=== PATIENT | female | born 1970 | race Caucasian/White ===

== ENCOUNTER 2020-01-31 23:16 | Emergency (ER) | payer OTHER, SELFPAY ==
[2020-01-31 23:37] VITALS: BP 191/85; PULSE 103; RESP 20; TEMP 36.6; O2SAT 100
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
--- NOTE | 2020-02-01 00:36 | PC.NURSE ---
Pt reports heavy vaginal bleeding since December.
[2020-02-01 00:37] LABS: Add Manual Diff / Slide Review NO; Basophils Absolute Auto 200 /uL (0-100); Basophils Percent Auto 1.5 % (0-2); Eosinophils Absolute Auto 300 /uL (0-450); Eosinophils Percent Auto 2.7 % (2-4); Hematocrit 27.6 % (36-46); Hemoglobin 8.4 g/dL (12.0-16.0); Lymphocytes Absolute Auto 2200 /uL (1100-4500); Lymphocytes Percent Auto 19.7 % (25-40); Mean Corpuscular HGB Conc 30.3 % (30-36); Mean Corpuscular Hemoglobin 18.3 PG (26-34); Mean Corpuscular Volume 60.4 fL (80-100); Monocytes Absolute Auto 900 /uL (0-900); Monocytes Percent Auto 7.8 % (3-14); Neutrophils Absolute Auto 7600 /uL (1500-7000); Neutrophils Percent Auto 68.3 % (50-75); Platelet Count 355 X10^3/uL (150-400); Red Blood Cell Count 4.58 X10^6/uL (4.0-5.2); Red Cell Distribution Width 18.9 % (11.6-14.8); White Blood Cell Count 11.1 X10^3/uL (4.5-11.0)
[2020-02-01 00:44] LABS: BUN Creatinine Ratio 15.7 (6-22); Blood Urea Nitrogen 13 mg/dL (7-17); Calcium 9.2 mg/dL (8.4-10.2); Carbon Dioxide 25 mmol/L (22-32); Chloride 105 mmol/L (98-107); Estimated Glomerular Filt Rate > 60.0 mL/min (>60); Glucose 128 mg/dL (70-100); HEMOLYSIS < 15 (0-50); Potassium 3.6 mmol/L (3.4-5.1); Sodium 137 mmol/L (137-145)
[2020-02-01 01:13] LABS: Anisocytosis 2+; Hypochromasia 1+; Microcytosis 3+; Ovalocytes 1+
[2020-02-01 01:32] LABS: Pregnancy Test Serum,Qual Negative (Negative)
[2020-02-01 01:58] LABS: Appearance Urine UA CLOUDY; Color Urine UA Red; Protein Urine UA 2+ (Negative)
[2020-02-01 01:59] LABS: Bilirubin Urine UA Negative (NEGATIVE); Glucose Urine UA NEGATIVE (Negative); Ketones Urine UA NEGATIVE (NEGATIVE); Nitrite Urine UA NEGATIVE (Negative); Occult Blood Urine UA 3+ (Negative); Urobilinogen Urine UA 0.2 E.U./dL (0.2)
[2020-02-01 02:09] LABS: Bacteria Urine Few (2-10); Culture Indicated Urine Specimen Cultured; Leukocyte Esterase Urine UA 1+ (NEGATIVE); RBC Urine >100/HPF (0-5/HPF); WBC Urine 10-30/HPF (0-5/HPF)
--- NOTE | 2020-02-01 02:10 | DI.US.S_ITS ---
PROCEDURE: US PELVIC COMPLETE INDICATIONS: ABNORMAL VAGINAL BLEEDING TECHNIQUE: Real-time scanning was performed of the pelvic organs, with image documentation. Additional endovaginal scanning was necessary due to incomplete visualization of the adnexal and endometrial structures by transabdominal scanning. COMPARISON: [facility], CT, ABDOMEN/PELVIS WITH CONTRAST, 07/24/2014, 18:03. FINDINGS: Transabdominal scanning: Limited scanning through the kidneys shows bilateral hydronephrosis. There are may be parapelvic cysts. No pathologic free abdominal or pelvic fluid. Endovaginal scanning: Uterus: Uterus is normal in size at 11.7 x 6.2 x 6.7 cm. The endometrium measures 17.4 mm in combined thickness. Ovaries: Ovaries are not visualized. IMPRESSION: 1. Marked thickening of endometrium measuring 17.4 mm. Differential diagnoses include endometrial carcinoma endometrial hyperplasia. Recommend gynecological followup. Endometrial sampling may be indicated. 2. Bilateral hydronephrosis and/or parapelvic cysts. Further evaluation with CT or radionuclide renogram is suggested. 3. Ovaries are not visualized. No significant discrepancy with the cut off man radiology preliminary report. Dictated by: Leona Hayes M.D. on 02/01/2020 at 8:22 Approved by: Leona Hayes M.D. on 02/01/2020 at 8:26
--- NOTE | 2020-02-01 02:10 | PC.NURSE ---
Pt declined offer of Tylenol, stating, No thank you, it will make me sleep for 16 hours.
[2020-02-01 02:11] LABS: UR Morphine/Opiate cutoff 300 Negative (Negative); Ur Creatinine 50 (Normal); Ur Specific Gravity 1.025 (Normal); Urine Amphetamines Negative (Negative); Urine Barbiturates Negative (Negative); Urine Benzodiazepines Negative (Negative); Urine Cocaine Negative (Negative); Urine MDMA Negative (Negative); Urine Methadone Negative (Negative); Urine Methamphetamines Negative (Negative); Urine Oxycodone Negative (Negative); Urine Phencyclidine Negative (Negative); Urine Tetrahydrocannabinol Negative (Negative); Urine Tricyclic Antidepressant Negative (Negative); Urine pH 5 (Normal)
[2020-02-01 02:16] VITALS: BP 160/70; PULSE 89; RESP 20; O2SAT 97
[2020-02-01 03:01] VITALS: BP 160/77; PULSE 90; RESP 20; O2SAT 97
== END 2020-02-01 03:37 | disposition home or self-care (01) ==
PROVIDERS: Emergency Provider Emergency Medicine; PCP Family Medicine
DX: N93.9 Abnormal uterine and vaginal bleeding, unspecified (principal); D64.9 Anemia, unspecified; I10 Essential (primary) hypertension; D72.829 Elevated white blood cell count, unspecified; N85.00 Endometrial hyperplasia, unspecified; Z80.3 Family history of malignant neoplasm of breast
CPT/HCPCS: 36415; 76830; 76856; 80048; 80305; 81001; 84703; 85025; 87086; 99284

== ENCOUNTER → 2020-02-07 | Outpatient (CLI) | payer OTHER, SELFPAY | PROVIDERS: PCP Family Medicine; Referring Provider Obstetrics & Gynecology; Visit Provider Obstetrics & Gynecology | DX: D62 Acute posthemorrhagic anemia (principal); R06.09 Other forms of dyspnea ==

== ENCOUNTER → 2020-02-13 12:41 | Outpatient (CLI) | payer OTHER, SELFPAY ==
[2020-02-13 13:01] LABS: Add Manual Diff / Slide Review NO; Basophils Absolute Auto 200 /uL (0-100); Basophils Percent Auto 1.7 % (0-2); Eosinophils Absolute Auto 200 /uL (0-450); Eosinophils Percent Auto 1.9 % (2-4); Hematocrit 27.9 % (36-46); Hemoglobin 8.4 g/dL (12.0-16.0); Lymphocytes Absolute Auto 2000 /uL (1100-4500); Lymphocytes Percent Auto 20.6 % (25-40); Mean Corpuscular HGB Conc 30.2 % (30-36); Mean Corpuscular Hemoglobin 19.4 PG (26-34); Mean Corpuscular Volume 64.2 fL (80-100); Monocytes Absolute Auto 600 /uL (0-900); Monocytes Percent Auto 5.9 % (3-14); Neutrophils Absolute Auto 6800 /uL (1500-7000); Neutrophils Percent Auto 69.9 % (50-75); Platelet Count 366 X10^3/uL (150-400); Red Blood Cell Count 4.34 X10^6/uL (4.0-5.2); Red Cell Distribution Width 22.4 % (11.6-14.8); White Blood Cell Count 9.7 X10^3/uL (4.5-11.0)
[2020-02-13 13:30] LABS: Anisocytosis 2+; Microcytosis 2+
[2020-02-13 13:31] LABS: Hypochromasia 2+
[2020-02-13 18:50] VITALS: BP 125/73; PULSE 85; RESP 20; TEMP 36.8
== END ==
PROVIDERS: PCP Family Medicine
DX: D62 Acute posthemorrhagic anemia (principal); R06.09 Other forms of dyspnea
CPT/HCPCS: 36415; 85025

== ENCOUNTER → 2020-02-13 15:30 | Oncology outpatient (ONC) | payer OTHER, SELFPAY ==
[2019-09-25 10:32] VITALS: BP 132/81; PULSE 89; RESP 18; TEMP 36.7; O2SAT 100
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
--- NOTE | 2019-09-27 17:24 | ONC.SCHED ---
Got auth from [facility] for specialty labs, just need to print it off from [facility] site to scan in here.
[2019-09-27 18:50] LABS: Add Manual Diff / Slide Review NO; Basophils Absolute Auto 100 /uL (0-100); Basophils Percent Auto 0.9 % (0-2); Eosinophils Absolute Auto 200 /uL (0-450); Eosinophils Percent Auto 2.3 % (2-4); Hematocrit 31.2 % (36-46); Hemoglobin 9.4 g/dL (12.0-16.0); Lymphocytes Absolute Auto 2100 /uL (1100-4500); Lymphocytes Percent Auto 20.3 % (25-40); Mean Corpuscular HGB Conc 30.2 % (30-36); Mean Corpuscular Hemoglobin 18.7 PG (26-34); Mean Corpuscular Volume 61.9 fL (80-100); Monocytes Absolute Auto 700 /uL (0-900); Monocytes Percent Auto 6.6 % (3-14); Neutrophils Absolute Auto 7100 /uL (1500-7000); Neutrophils Percent Auto 69.9 % (50-75); Platelet Count 340 X10^3/uL (150-400); Red Blood Cell Count 5.04 X10^6/uL (4.0-5.2); Red Cell Distribution Width 17.8 % (11.6-14.8); White Blood Cell Count 10.1 X10^3/uL (4.5-11.0)
[2019-09-27 19:08] LABS: Hypochromasia 1+; Polychromasia 1+
[2019-09-27 19:09] LABS: Microcytosis 2+
[2019-09-27 19:32] LABS: Alanine Aminotransferase 15 IU/L (<35); Albumin 4.6 g/dL (3.5-5.0); Albumin Globulin Ratio 1.5 (1.0-2.8); Alkaline Phosphatase 84 U/L (38-126); Aspartate Aminotransferase 19 IU/L (14-36); BUN Creatinine Ratio 14.4 (6-22); Bilirubin Total 0.4 mg/dL (0.2-1.3); Blood Urea Nitrogen 13 mg/dL (7-17); Calcium 9.5 mg/dL (8.4-10.2); Carbon Dioxide 23 mmol/L (22-32); Chloride 103 mmol/L (98-107); Estimated Glomerular Filt Rate > 60.0 mL/min (>60); Globulin 3.1 g/dL (1.7-4.1); Glucose 88 mg/dL (70-100); HEMOLYSIS < 15 (0-50); Potassium 4.2 mmol/L (3.4-5.1); Sodium 139 mmol/L (137-145); Total Protein 7.7 g/dL (6.3-8.2)
[2019-09-27 20:06] LABS: Ferritin 3.9 ng/mL (6.27-137)
[2019-09-29 13:55] LABS: HEMOLYSIS < 15 (0-50); Iron 12 ug/dL (37-170)
[2019-09-29 14:13] LABS: Percent Iron Saturation 3 % (15-50); Total Iron Binding Capacity 480 ug/dL (265-497); Transferrin 396 mg/dL (206-381)
[2019-10-02 10:45] LABS: Von Willebrand Factor Antigen 145 % (50-217)
[2019-10-16 10:52] VITALS: BP 134/75; PULSE 77; RESP 16; TEMP 36.2; O2SAT 99
--- NOTE | 2019-10-16 10:53 | ONC.PN ---
PN -Subjective Interval history: ID/CC: 48 year old with presumed history of vWD Hematology History: Latrice Alaniz is a 48 year old female. Per patient, she was diagnosed with von Willebrand disease about late . She said she has always had long bleeding time after skin cut. She denies any history of joint bleeding. She has had easy bruises. She has had severe iron deficiency anemia presumably due to heavy menstrual bleeding. She had 4 infusions of Venofer every 2 weeks recently. She did not get the the 5th due to insurance issue. She is allergic to Benadryl and Prednisone. She denies any blood in the stool. No abdominal pain. No nausea or vomiting. She admits the menstrual periods are getting slightly better which she attributed to menopause. She is experiencing hot flashes. She has an appointment on 10/27/2019 for EGD/C-scope by Dr. Osuna Interim Events: Today, upon further questioning, she said that her bleeding problems seemed to be related to her menstrual cycles. In between the menstrual periods, she said she has not noticed any excessive bleeding including the skin cut or any other procedures. She went further to describe that the skin cut bleeding usually would stop in 5 minutes if it happened in between her menstrual periods. But it could last for hours during the menstrual periods. - Patient Self-Reported Symptoms SR ears, nose, mouth, throat issues: Nose bleeds, Bleeding gums SR Cardiovascular issues: Chest pain, discomfort, tightness, Dizzy/lightheaded SR Neuro issues: Lightheaded/dizzy SR Hematologic issues: Slow healing, Bleeding/bruising - Additional ROS All systems PM: reviewed and no additional remarkable complaints except as stated Home Medications and Allergies Home Medications Medication Instructions Recorded Confirmed Type pantoprazole 20 mg tablet,delayed 20 mg PO DAILY 08/28/19 10/16/19 History release Allergies Allergy/AdvReac Type Severity Reaction Status Date / Time BENZACAIN Allergy Severe Uncoded 02/23/18 12:29 COCAINE Allergy Severe Uncoded 02/23/18 12:29 From BENADRYL Allergy Severe Uncoded 02/23/18 12:29 LATEX Allergy Severe Uncoded 02/23/18 12:29 MORPHINE Allergy Severe Uncoded 02/23/18 12:29 NOVOCAINE Allergy Severe Uncoded 02/23/18 12:29 SULFA Allergy Severe Uncoded 02/23/18 12:29 TAPE Allergy Severe Uncoded 02/23/18 12:29 AMOXICILLIN Allergy Intermediate Uncoded 02/23/18 12:29 CODEINE Allergy Intermediate Uncoded 02/23/18 12:29 LIDOCAINE Allergy Intermediate Uncoded 02/23/18 12:29 PLASTIC SPECULUMS Allergy Intermediate Uncoded 02/23/18 12:29 Exam Vital signs: Last Vital Signs Temp 97.2 F L 10/16/19 10:52 Pulse 77 10/16/19 10:52 Resp 16 10/16/19 10:52 BP 134/75 10/16/19 10:52 Pulse Ox 99 10/16/19 10:52 ECOG 1 - Constitutional positive no acute distress, positive obese, positive cooperative - Routine HEENT Exam Head: Present: normocephalic, atraumatic Eye: Present: EOMI, PERRL, normal accommodation. Absent: conjunctival icterus ENT: Present: mucous membranes moist - Routine Neck Exam Present: supple. Absent: lymphadenopathy, thyromegaly - Routine Chest/Breast/Axilla Exam Axillae: Absent: lymphadenopathy - Routine Respiratory Exam Present: Clear to auscultation bilaterally. Absent: wheezes - Routine Cardiovascular Exam Present: RRR, S1, S2. Absent: murmur, gallop, rubs - Routine Extremities Exam Absent: edema - Routine Neurological Exam Present: alert, oriented X3, CN II-XII intact. Absent: sensory deficit, motor deficit - Routine Psychiatric Exam Present: normal affect Results - Labs Laboratory Last Values WBC 10.1 X10^3/uL (4.5-11.0) 09/27/19 17: RBC 5.04 X10^6/uL (4.0-5.2) 09/27/19 17:22 Hgb 9.4 g/dL (12.0-16.0) L 09/27/19 17:22 Hct 31.2 % (36-46) L 09/27/19 17:22 MCV 61.9 fL (80-100) L 09/27/19 17:22 MCH 18.7 PG (26-34) L 09/27/19 17:22 MCHC 30.2 % (30-36) 09/27/19 17:22 RDW 17.8 % (11.6-14.8) H 09/27/19 17:22 Plt Count 340 X10^3/uL (150-400) 09/27/19 17:22 Neut % (Auto) 69.9 % (50-75) 09/27/19 17:22 Lymph % (Auto) 20.3 % (25-40) L 09/27/19 17:22 Addison % (Auto) 6.6 % (3-14) 09/27/19 17:22 Eos % (Auto) 2.3 % (2-4) 09/27/19 17:22 Baso % (Auto) 0.9 % (0-2) 09/27/19 17:22 Neut # (Auto) 7100 /uL (9578-3178) H 09/27/19 17:22 Lymph # (Auto) 2100 /uL (9412-4513) 09/27/19 17:22 Addison # (Auto) 700 /uL (0-900) 09/27/19 17:22 Eos # (Auto) 200 /uL (0-450) 09/27/19 17:22 Baso # (Auto) 100 /uL (0-100) 09/27/19 17:22 RBC Morphology See below 09/27/19 17:22 Polychromasia 1+ H 09/27/19 17:22 Hypochromasia 1+ H 09/27/19 17:22 Microcytosis 2+ H 09/27/19 17:22 von Willebrand Antigen 145 % (50-217) 09/27/19 17:39 Sodium 139 mmol/L (137-145) 09/27/19 17:22 Potassium 4.2 mmol/L (3.4-5.1) 09/27/19 17:22 Chloride 103 mmol/L (98-107) 09/27/19 17:22 Carbon Dioxide 23 mmol/L (22-32) 09/27/19 17:22 BUN 13 mg/dL (7-17) 09/27/19 17:22 Creatinine 0.90 mg/dL (0.52-1.04) 09/27/19 17:22 Estimated GFR > 60.0 mL/min (>60) 09/27/19 17:22 BUN/Creatinine Ratio 14.4 (6-22) 09/27/19 17:22 Glucose 88 mg/dL (70-100) 09/27/19 17:22 Calcium 9.5 mg/dL (8.4-10.2) 09/27/19 17:22 Iron 12 ug/dL (37-170) L 09/27/19 17:22 TIBC 480 ug/dL (265-497) 09/27/19 17:22 % Saturation 3 % (15-50) L 09/27/19 17:22 Transferrin 396 mg/dL (206-381) H 09/27/19 17:22 Ferritin 3.9 ng/mL (6.27-137) L 09/27/19 17:22 Total Bilirubin 0.4 mg/dL (0.2-1.3) 09/27/19 17:22 AST 19 IU/L (14-36) 09/27/19 17:22 ALT 15 IU/L (<35) 09/27/19 17:22 Alkaline Phosphatase 84 U/L (38-126) 09/27/19 17:22 Total Protein 7.7 g/dL (6.3-8.2) 09/27/19 17:22 Albumin 4.6 g/dL (3.5-5.0) 09/27/19 17:22 Globulin 3.1 g/dL (1.7-4.1) 09/27/19 17:22 Albumin/Globulin Ratio 1.5 (1.0-2.8) 09/27/19 17:22 Ref Test (Refrig) 09/27/19 17:38 - Imaging Additional studies: Procedures Injection or infusion of other therapeutic or prophylactic substance (07/24/14) Assessment and Plan (1) Von Willebrand disease Overview: 48 year old female with presumed history of von Willebrand disease and long history of heavy menstrual periods. Assessment: Today, I spent at least 90% of my time discussing with the patient about her history of bleeding problems and about the repeat test of her presumed von Willebrand disease. Patient insisted that in between her menstrual periods, she has not noticed any significant bleeding problems. She said she had tooth extraction in-between her periods, and the bleeding stopped right away. However she has been having significant perfuse menstrual bleeding. In addition during her menstrual periods, she has noticed significant bleeding problems, for example, prolonged bleeding after skin cut. I talked with her that the clinical presentation is not characteristic for von Willebrand's disease. Furthermore, repeat test we obtained during her previous visit showed that the protein level of von Willebrand's factor is normal, and the factor 8 activity is also normal. Given the above, I think she at most might have a type I von Willeband disease when she was young, and that has spontaneously resolved with age. I talked with her that it is not uncommon to see spontaneous resolution of mild type I von Willebrand disease with age. To further confirm, I will obtain blood samples to evaluate vWF:RCo and vWF:CB Plan: 1. vWF:RCo and vWF:CB 2. PT/PTT 3. Will call Dr. Osuna (2) Iron (Fe) deficiency anemia She has already scheduled for colonoscopy and upper endoscopy next week. Given the above discussion, I think she has a low risk for bleeding. I will call Dr. Osuna and informed him about my discovery and my impression. Patient voiced understanding. I will see the patient after her panscope.
[2019-10-16 13:59] LABS: INR 1.1 (0.9-1.3); Prothrombin Time 12.3 SECONDS (10.1-12.7)
[2019-10-16 14:02] LABS: PTT Partial Thromboplastin Tim 29 SECONDS (26.4-36.2)
--- NOTE | 2019-11-02 15:04 | PC.NURSE ---
Pt called in requesting specialty lab results. WOuld like to discuss results with Dr. Haynes. Will place note in Dr. Haynes's box to call pt.
[2020-02-07 09:33] LABS: Hemoglobin 7.1 g/dL (12.0-16.0); Mean Corpuscular HGB Conc 30.1 % (30-36); Mean Corpuscular Hemoglobin 18.2 PG (26-34); Mean Corpuscular Volume 60.6 fL (80-100); Platelet Count 352 X10^3/uL (150-400); Red Blood Cell Count 3.91 X10^6/uL (4.0-5.2); Red Cell Distribution Width 18.8 % (11.6-14.8); White Blood Cell Count 6.9 X10^3/uL (4.5-11.0)
[2020-02-07 09:45] LABS: Hematocrit 23.7 % (36-46)
[2020-02-07] MEDS: ACETAMINOPHEN 325 MG TABLET 650 MG PO (13:47)
[2020-02-07] MEDS: SODIUM CHLORIDE 0.9% 250 ML 21 ML IV (13:52)
[2020-02-07 14:18] VITALS: BP 134/69; PULSE 88; RESP 16; TEMP 36.7
[2020-02-07 15:02] VITALS: BP 126/75; PULSE 91; RESP 18; TEMP 36.8; O2SAT 100
[2020-02-07 17:00] VITALS: BP 136/69; PULSE 90; RESP 18; TEMP 36.8
[2020-02-07 17:09] LABS: Add Manual Diff / Slide Review NO; Basophils Absolute Auto 100 /uL (0-100); Basophils Percent Auto 1.3 % (0-2); Eosinophils Absolute Auto 100 /uL (0-450); Eosinophils Percent Auto 1.6 % (2-4); Hematocrit 23.7 % (36-46); Hemoglobin 7.3 g/dL (12.0-16.0); Lymphocytes Absolute Auto 1800 /uL (1100-4500); Lymphocytes Percent Auto 22.4 % (25-40); Mean Corpuscular HGB Conc 30.7 % (30-36); Mean Corpuscular Hemoglobin 19.4 PG (26-34); Mean Corpuscular Volume 63.3 fL (80-100); Monocytes Absolute Auto 600 /uL (0-900); Monocytes Percent Auto 7.4 % (3-14); Neutrophils Absolute Auto 5400 /uL (1500-7000); Neutrophils Percent Auto 67.3 % (50-75); Platelet Count 320 X10^3/uL (150-400); Red Blood Cell Count 3.74 X10^6/uL (4.0-5.2); Red Cell Distribution Width 20.4 % (11.6-14.8)
[2020-02-07 17:21] LABS: Anisocytosis 2+; Microcytosis 3+
[2020-02-13] VITALS (7 sets, daily range): BP systolic 125–154; BP diastolic 70–84; PULSE 82–899; RESP 16–116; TEMP 36.6–36.9
[2020-02-13] MEDS: ACETAMINOPHEN 325 MG TABLET 650 MG PO (16:02)
[2020-02-13] MEDS: SODIUM CHLORIDE 0.9% 250 ML 21 ML IV (16:02)
--- NOTE | 2020-02-13 20:37 | PC.NURSE ---
Patient arrived on Acute Care from infusion clinic to complete 2 u PRBC infusion. First unit in progress when she arrived. 2 unit hung at 1830 and completed at 2030. Vital signs have been stable and patient has had nom complaints. She is currently waiting for her to come and pick her up to go home.
--- NOTE | 2020-04-24 14:31 | PC.NURSE ---
THIS NURSE RECEIVED FAXED BLOOD TRANSFUSION ORDER AT 1400. CALLED PATIENT PHONE AND SPOKE WITH WHO SAID SHE WAS AT [facility] ER AND GETTING TRANSFUSED THERE DUE TO OUR CLOSED STATUS STILL THIS WED.
== END ==
PROVIDERS: Obstetrics & Gynecology; PCP Family Medicine; Visit Provider Internal Medicine Hematology & Oncology
DX: D64.9 Anemia, unspecified (principal); R06.09 Other forms of dyspnea; D50.9 Iron deficiency anemia, unspecified
CPT/HCPCS: 36415; 36430; 80053; 82728; 83520; 83540; 83550; 85025; 85027; 85240; 85244; 85245; 85335; 85610; 85730; 86850; 86900; 86901; 99204; 99214; P9016

== ENCOUNTER → 2020-04-09 17:54 | Outpatient (CLI) | payer OTHER, SELFPAY ==
[2020-04-09 18:21] LABS: Hematocrit 35.8 % (36-46); Hemoglobin 11.7 g/dL (12.0-16.0); Mean Corpuscular HGB Conc 32.6 % (30-36); Mean Corpuscular Hemoglobin 22.2 PG (26-34); Mean Corpuscular Volume 68.2 fL (80-100); Platelet Count 280 X10^3/uL (150-400); Red Blood Cell Count 5.24 X10^6/uL (4.0-5.2); Red Cell Distribution Width 21.9 % (11.6-14.8); White Blood Cell Count 10.9 X10^3/uL (4.5-11.0)
== END ==
PROVIDERS: PCP Family Medicine; Referring Provider Student in an Organized Health Care Education/Training Program; Visit Provider Student in an Organized Health Care Education/Training Program
DX: D50.9 Iron deficiency anemia, unspecified (principal); D68.0 Von Willebrand disease
CPT/HCPCS: 36415; 85027

== ENCOUNTER → 2020-04-17 08:16 | Outpatient (CLI) | payer OTHER, SELFPAY ==
[2020-04-17 08:37] LABS: Hematocrit 33.9 % (36-46); Mean Corpuscular HGB Conc 32.4 % (30-36); Mean Corpuscular Hemoglobin 22.1 PG (26-34); Mean Corpuscular Volume 68.4 fL (80-100); Platelet Count 294 X10^3/uL (150-400); Red Blood Cell Count 4.96 X10^6/uL (4.0-5.2); Red Cell Distribution Width 20.6 % (11.6-14.8); White Blood Cell Count 9.8 X10^3/uL (4.5-11.0)
== END ==
PROVIDERS: Obstetrics & Gynecology; PCP Family Medicine; Referring Provider Family Medicine; Visit Provider Family Medicine
DX: D50.9 Iron deficiency anemia, unspecified (principal); N92.4 Excessive bleeding in the premenopausal period
CPT/HCPCS: 36415; 85027; 86850; 86900; 86901

== ENCOUNTER → 2020-04-22 11:58 | Outpatient (CLI) | payer OTHER, SELFPAY ==
[2020-04-22 12:28] LABS: Add Manual Diff / Slide Review NO; Basophils Absolute Auto 100 /uL (0-100); Basophils Percent Auto 1.3 % (0-2); Eosinophils Absolute Auto 200 /uL (0-450); Eosinophils Percent Auto 2.5 % (2-4); Hemoglobin 9.6 g/dL (12.0-16.0); Lymphocytes Absolute Auto 2300 /uL (1100-4500); Lymphocytes Percent Auto 24.3 % (25-40); Mean Corpuscular HGB Conc 31.9 % (30-36); Mean Corpuscular Hemoglobin 21.8 PG (26-34); Mean Corpuscular Volume 68.4 fL (80-100); Monocytes Absolute Auto 800 /uL (0-900); Monocytes Percent Auto 8.3 % (3-14); Neutrophils Absolute Auto 6100 /uL (1500-7000); Neutrophils Percent Auto 63.6 % (50-75); Platelet Count 349 X10^3/uL (150-400); Red Blood Cell Count 4.39 X10^6/uL (4.0-5.2); Red Cell Distribution Width 20.5 % (11.6-14.8); White Blood Cell Count 9.5 X10^3/uL (4.5-11.0)
[2020-04-22 12:42] LABS: Anisocytosis 2+; Poikilocytosis 1+
== END ==
PROVIDERS: PCP Family Medicine; Referring Provider Obstetrics & Gynecology; Visit Provider Obstetrics & Gynecology
DX: Z86.2 Personal history of diseases of the blood and blood-forming organs and certain disorders involving the immune mechanism (principal); Z87.42 Personal history of other diseases of the female genital tract
CPT/HCPCS: 36415; 85025

== ENCOUNTER → 2020-04-24 13:14 | Outpatient (CLI) | payer OTHER, SELFPAY ==
[2020-04-24 13:34] LABS: Hematocrit 31.2 % (36-46); Hemoglobin 9.8 g/dL (12.0-16.0)
== END ==
PROVIDERS: PCP Family Medicine; Referring Provider Obstetrics & Gynecology; Visit Provider Obstetrics & Gynecology
DX: D50.9 Iron deficiency anemia, unspecified (principal); N92.4 Excessive bleeding in the premenopausal period
CPT/HCPCS: 36415; 85014; 85018; 86850; 86900; 86901

== ENCOUNTER 2020-04-24 14:10 | Emergency (ER) | payer OTHER, SELFPAY ==
[2020-04-24 14:25] VITALS: BP 157/67; PULSE 96; RESP 24; O2SAT 97
--- NOTE | 2020-04-24 14:45 | PC.NURSE ---
Patient does not answer many questions. States she is on lots of hormones. Pt and report patient is confused. Pt repeatedly states I have green hair. I remind her that I am wearing a scrub cap. Pt seems confused with moments of being lucid. When pt was told she would get other tests done pt does not seem confused any more and reports that she is now awake and knows what is going on. I asked Judy head of ED to come talk with pt regarding plan.
--- NOTE | 2020-04-24 14:55 | DI.RAD.S_ITS ---
PROCEDURE: XR CHEST 1V INDICATIONS: Dyspnea on exertion TECHNIQUE: One view of the chest was acquired. COMPARISON: None. FINDINGS: Surgical changes and devices: None. Lungs and pleura: Lungs are clear. No pleural effusions or pneumothorax. Mediastinum: Mediastinal contours appear normal. Heart size is normal. Bones and chest wall: No suspicious bony lesions. Overlying soft tissues appear unremarkable. IMPRESSION: No acute cardiopulmonary process is evident. Dictated by: Shawn Tejada M.D. on 04/24/2020 at 14:25 Approved by: Shawn Tejada M.D. on 04/24/2020 at 14:26
--- NOTE | 2020-04-24 14:55 | DI.CT.S_ITS ---
PROCEDURE: CT HEAD/BRAIN WO CON INDICATIONS: Confusion TECHNIQUE: Noncontrast 4.5 mm thick angled axial sections acquired from the foramen magnum to the vertex, with coronal and sagittal reformats. For radiation dose reduction, the following was used: automated exposure control, adjustment of mA and/or kV according to patient size. COMPARISON: [facility], MR, MR BRAIN WITH/WITHOUT CONTRAST, 07/08/2019, 10:34. FINDINGS: Image quality: Excellent. CSF spaces: Basal cisterns are patent. No extra-axial fluid collections. Ventricles are normal in size and shape. Brain: No midline shift. No intracranial masses or hemorrhage. Leon-white matter interface is normal. There is a small calcification identified on the anterior aspect of the medial left temporal lobe, correlating with the area of enhancement on the previous MRI. No additional parenchymal abnormalities are appreciated. Skull and face: Calvarium and visualized facial bones are intact, without suspicious lesions. Sinuses: Visualized sinuses and mastoids are clear. IMPRESSION: 1. No acute intracranial hemorrhage. 2. Punctate calcification at the site of the patient's known left temporal lobe lesion. No surrounding parenchymal edema is identified. Dictated by: Shawn Tejada M.D. on 04/24/2020 at 14:20 Approved by: Shawn Tejada M.D. on 04/24/2020 at 14:25
[2020-04-24] MEDS: SODIUM CHLORIDE 0.9% 1,000 ML 1000 ML IV (15:03)
--- NOTE | 2020-04-24 15:12 | PC.NURSE ---
I entered room to take care of patient. I asked her what brings her in today and states Didn't anyone tell you and appears very upset. I Informed him that I was told she has vaginal bleeding and was sent for a blood transfusion. I informed him that as primary nurse I need to do an assessment and ask questions. verbalizes understanding. IV started. Dr. Marlow in to evaluate patient. Informed pt and family that we will not be starting a transfusion at this moment and we needed to do some imaging and lab work. Pt and become very upset and states they are only here for transfusion and want to leave if they will not be getting one. I informed that decision has not yet been made but that we need to evaluate pt and find out why she is confused and having CP. both parties continue to ask questions and are unsure they want to stay.
[2020-04-24 15:17] LABS: INR 1.1 (0.9-1.3); Prothrombin Time 12.9 SECONDS (10.1-12.7)
[2020-04-24 15:20] LABS: PTT Partial Thromboplastin Tim 26 SECONDS (26.4-36.2)
[2020-04-24 15:21] LABS: Alanine Aminotransferase 11 IU/L (<35); Albumin 3.9 g/dL (3.5-5.0); Albumin Globulin Ratio 1.2 (1.0-2.8); Alkaline Phosphatase 63 U/L (38-126); Aspartate Aminotransferase 21 IU/L (14-36); BUN Creatinine Ratio 10.4 (6-22); Bilirubin Total 0.4 mg/dL (0.2-1.3); Blood Urea Nitrogen 11 mg/dL (7-17); Calcium 8.6 mg/dL (8.4-10.2); Carbon Dioxide 20 mmol/L (22-32); Chloride 111 mmol/L (98-107); Estimated Glomerular Filt Rate 55.1 mL/min (>60); Globulin 3.3 g/dL (1.7-4.1); Glucose 103 mg/dL (70-100); HEMOLYSIS 25 (0-50); Lipase 91 U/L (23-300); Potassium 3.8 mmol/L (3.4-5.1); Sodium 139 mmol/L (137-145); Total Protein 7.2 g/dL (6.3-8.2)
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
[2020-04-24 15:33] LABS: NT-proBNP (BNP-Adult 18+) 35 pg/mL (<125); Troponin I < 0.012 ng/mL (0.01-0.034)
[2020-04-24 17:15] LABS: Add Manual Diff / Slide Review NO; Basophils Absolute Auto 100 /uL (0-100); Basophils Percent Auto 0.9 % (0-2); Eosinophils Absolute Auto 200 /uL (0-450); Eosinophils Percent Auto 1.9 % (2-4); Hematocrit 28.8 % (36-46); Hemoglobin 9.1 g/dL (12.0-16.0); Lymphocytes Absolute Auto 1600 /uL (1100-4500); Lymphocytes Percent Auto 14.3 % (25-40); Mean Corpuscular HGB Conc 31.5 % (30-36); Mean Corpuscular Hemoglobin 21.7 PG (26-34); Mean Corpuscular Volume 68.8 fL (80-100); Monocytes Absolute Auto 700 /uL (0-900); Monocytes Percent Auto 5.9 % (3-14); Neutrophils Absolute Auto 8600 /uL (1500-7000); Platelet Count 343 X10^3/uL (150-400); Red Blood Cell Count 4.19 X10^6/uL (4.0-5.2); White Blood Cell Count 11.1 X10^3/uL (4.5-11.0)
--- NOTE | 2020-04-24 17:15 | PC.NURSE ---
i was asked to speak with patient regarding plan of care and some confusion. Discussed plan of care and patient's concerns, discussed patient has the ability refuse care or any portion of care at anytime. Patient and voiced understanding. Pt refused EKG when RT came to perform it./
[2020-04-24 18:16] LABS: Anisocytosis 1+; Microcytosis 1+; Poikilocytosis 1+
[2020-04-24 18:17] LABS: Ovalocytes 1+
== END 2020-04-24 18:15 | disposition home or self-care (01) ==
PROVIDERS: Emergency Provider Emergency Medicine; PCP Family Medicine
DX: R00.0 Tachycardia, unspecified (principal); R41.0 Disorientation, unspecified; R07.9 Chest pain, unspecified; R55 Syncope and collapse; R06.02 Shortness of breath; D64.9 Anemia, unspecified; D50.9 Iron deficiency anemia, unspecified; N92.4 Excessive bleeding in the premenopausal period
CPT/HCPCS: 36415; 70450; 71045; 80053; 83690; 83880; 84484; 85014; 85018; 85025; 85610; 85730; 86850; 86900; 86901; 96360; 96361; 99284

== ENCOUNTER → 2020-04-26 13:53 | Outpatient (CLI) | payer OTHER, SELFPAY ==
--- NOTE | 2020-04-26 | DI.US.S_ITS ---
PROCEDURE: US PELVIC COMPLETE INDICATIONS: MENORRHAGIA TECHNIQUE: Real-time scanning was performed of the pelvic organs, with image documentation. Additional endovaginal scanning was necessary due to incomplete visualization of the adnexal and endometrial structures by transabdominal scanning. COMPARISON: [facility], , US PELVIC COMPLETE, 02/01/2020, 2:34. FINDINGS: Transabdominal scanning: Limited scanning through the kidneys shows mild left hydronephrosis versus multiple parapelvic cysts.. No pathologic free abdominal or pelvic fluid. Endovaginal scanning: Uterus: Uterus is normal in size at 10.4 x 7.2 x 5.6 cm. The endometrium measures 23 mm in combined thickness. Endometrial microcystic changes. Ovaries: Right are not visualized. Simple cyst associated with the right ovary measuring up to 1.7 cm. No free fluid. IMPRESSION: 1. Abnormal appearance of the endometrial complex which is thickened and has microcystic changes. Endometrial carcinoma cannot be excluded and endometrial biopsy is recommended. 2. 17 mm simple left ovarian cyst 3. Persistent mild left renal hydronephrosis versus multiple parapelvic cysts. If indicated, further evaluation with CT or radionuclide renogram could be performed. Dictated by: Manjinder Garcia [facility] Interpreted: Lianet Alicea MD on 04/26/2020 at 15:07 Approved by: Lianet Alicea MD, PhD on 04/26/2020 at 15:12
== END ==
PROVIDERS: PCP Family Medicine; Referring Provider Obstetrics & Gynecology Gynecologic Oncology; Visit Provider Obstetrics & Gynecology Gynecologic Oncology
DX: N92.1 Excessive and frequent menstruation with irregular cycle (principal); N83.291 Other ovarian cyst, right side
CPT/HCPCS: 76830; 76856

== ENCOUNTER → 2020-07-16 14:40 | Outpatient (CLI) | payer OTHER, SELFPAY ==
[2020-07-16 14:55] LABS: Bacteria Urine None Seen; RBC Urine None Seen (0-5/HPF); WBC Urine None Seen (0-5/HPF)
[2020-07-16 15:55] LABS: Appearance Urine UA CLEAR; Bilirubin Urine UA NEGATIVE (NEGATIVE); Color Urine UA YELLOW; Glucose Urine UA NEGATIVE (Negative); Ketones Urine UA NEGATIVE (NEGATIVE); Leukocyte Esterase Urine UA TRACE (NEGATIVE); Nitrite Urine UA NEGATIVE (Negative); Occult Blood Urine UA NEGATIVE (Negative); Protein Urine UA NEGATIVE (Negative); Specific Gravity Urine UA <=1.005 (1.000-1.035); Urobilinogen Urine UA 0.2 E.U./dL (0.2)
[2020-07-16 15:57] LABS: Culture Indicated Urine Cult Not Indicated; Urine Comments Microscopic Normal
== END ==
PROVIDERS: PCP Family Medicine; Referring Provider Obstetrics & Gynecology Gynecologic Oncology; Visit Provider Obstetrics & Gynecology Gynecologic Oncology
DX: N23 Unspecified renal colic (principal); Z87.440 Personal history of urinary (tract) infections
CPT/HCPCS: 81001

== ENCOUNTER → 2020-07-25 09:45 | Outpatient (CLI) | payer OTHER, SELFPAY ==
[2020-07-25 10:28] LABS: Add Manual Diff / Slide Review NO; Basophils Absolute Auto 100 /uL (0-100); Basophils Percent Auto 1.4 % (0-2); Eosinophils Absolute Auto 200 /uL (0-450); Eosinophils Percent Auto 3.6 % (2-4); Hematocrit 37.3 % (36-46); Hemoglobin 11.5 g/dL (12.0-16.0); Lymphocytes Absolute Auto 1600 /uL (1100-4500); Lymphocytes Percent Auto 24.3 % (25-40); Mean Corpuscular HGB Conc 30.9 % (30-36); Mean Corpuscular Hemoglobin 20.7 PG (26-34); Mean Corpuscular Volume 66.8 fL (80-100); Monocytes Absolute Auto 500 /uL (0-900); Monocytes Percent Auto 7.5 % (3-14); Neutrophils Absolute Auto 4200 /uL (1500-7000); Neutrophils Percent Auto 63.2 % (50-75); Platelet Count 296 X10^3/uL (150-400); Red Blood Cell Count 5.58 X10^6/uL (4.0-5.2); Red Cell Distribution Width 22.4 % (11.6-14.8); White Blood Cell Count 6.7 X10^3/uL (4.5-11.0)
[2020-07-25 10:29] LABS: Hemoglobin A1C% w Est Avg Glu 5.7 % (4.0-6.0)
[2020-07-25 10:35] LABS: Alanine Aminotransferase 39 IU/L (<35); Albumin 4.3 g/dL (3.5-5.0); Albumin Globulin Ratio 1.3 (1.0-2.8); Alkaline Phosphatase 94 U/L (38-126); Aspartate Aminotransferase 35 IU/L (14-36); BUN Creatinine Ratio 14.1 (6-22); Bilirubin Total 0.4 mg/dL (0.2-1.3); Blood Urea Nitrogen 12 mg/dL (7-17); Calcium 9.7 mg/dL (8.4-10.2); Carbon Dioxide 26 mmol/L (22-32); Chloride 104 mmol/L (98-107); Cholesterol 249 mg/dL (140-199); Estimated Glomerular Filt Rate > 60.0 mL/min (>60); Globulin 3.4 g/dL (1.7-4.1); Glucose 112 mg/dL (70-100); HDL Cholesterol 37 mg/dL (40-60); HEMOLYSIS < 15 (0-50); LDL Cholesterol Calculated 164 mg/dL (<100); Potassium 4.4 mmol/L (3.4-5.1); Sodium 138 mmol/L (137-145); Total Protein 7.7 g/dL (6.3-8.2); Triglycerides 242 mg/dL (35-150)
[2020-07-25 10:46] LABS: Anisocytosis 2+; Microcytosis 2+; Ovalocytes 1+
[2020-07-25 10:47] LABS: Hypochromasia 1+
[2020-07-25 11:01] LABS: TSH w/ Reflex to FT4 1.39 uIU/mL (0.47-4.68)
== END ==
PROVIDERS: PCP Family Medicine; Referring Provider Family Medicine; Visit Provider Family Medicine
DX: D64.9 Anemia, unspecified (principal); E78.5 Hyperlipidemia, unspecified; R73.02 Impaired glucose tolerance (oral); E88.81 Metabolic syndrome and other insulin resistance
CPT/HCPCS: 36415; 80053; 80061; 83036; 84443; 85025

== ENCOUNTER → 2020-10-04 07:52 | Outpatient (CLI) | payer OTHER, SELFPAY ==
[2020-10-04 09:29] LABS: Add Manual Diff / Slide Review NO; Basophils Absolute Auto 100 /uL (0-100); Eosinophils Absolute Auto 200 /uL (0-450); Eosinophils Percent Auto 2.5 % (2-4); Hematocrit 44.5 % (36-46); Hemoglobin 14.5 g/dL (12.0-16.0); Lymphocytes Absolute Auto 1700 /uL (1100-4500); Mean Corpuscular HGB Conc 32.5 % (30-36); Mean Corpuscular Hemoglobin 25.3 PG (26-34); Mean Corpuscular Volume 77.9 fL (80-100); Monocytes Absolute Auto 500 /uL (0-900); Monocytes Percent Auto 7.1 % (3-14); Neutrophils Absolute Auto 4900 /uL (1500-7000); Neutrophils Percent Auto 66.4 % (50-75); Platelet Count 255 X10^3/uL (150-400); Red Blood Cell Count 5.72 X10^6/uL (4.0-5.2); Red Cell Distribution Width 21.9 % (11.6-14.8); White Blood Cell Count 7.4 X10^3/uL (4.5-11.0)
[2020-10-04 09:57] LABS: HEMOLYSIS < 15 (0-50); Iron 60 ug/dL (37-170)
[2020-10-04 10:03] LABS: Microcytosis 1+
[2020-10-04 10:04] LABS: Anisocytosis 2+
[2020-10-04 10:05] LABS: Ovalocytes 1+
[2020-10-04 10:08] LABS: Percent Iron Saturation 20 % (15-50); Total Iron Binding Capacity 298 ug/dL (265-497); Transferrin 235 mg/dL (206-381)
[2020-10-04 10:29] LABS: Ferritin 122 ng/mL (6-137)
== END ==
PROVIDERS: PCP Family Medicine; Referring Provider Family Medicine; Visit Provider Family Medicine
DX: D64.9 Anemia, unspecified (principal)
CPT/HCPCS: 36415; 82728; 83540; 83550; 85025

== ENCOUNTER → 2021-01-27 12:39 | Outpatient (CLI) | payer OTHER, SELFPAY ==
[2021-01-27] MEDS: COVID-19 VACC, Ad26(JANSSEN)/PF 0.5 ML IM (12:51)
== END ==
PROVIDERS: PCP Family Medicine; Visit Provider Internal Medicine
DX: Z23 Encounter for immunization (principal)
CPT/HCPCS: 0031A; 91303

== ENCOUNTER → 2021-07-18 14:52 | Outpatient (CLI) | payer OTHER, SELFPAY ==
[2021-07-18 15:43] LABS: Add Manual Diff / Slide Review NO; Basophils Absolute Auto 100 /uL (0-100); Basophils Percent Auto 1.2 % (0-2); Eosinophils Absolute Auto 200 /uL (0-450); Eosinophils Percent Auto 2.2 % (2-4); Hematocrit 43.8 % (36-46); Hemoglobin 14.8 g/dL (12.0-16.0); Lymphocytes Absolute Auto 2100 /uL (1100-4500); Lymphocytes Percent Auto 27.4 % (25-40); Mean Corpuscular HGB Conc 33.8 % (30-36); Mean Corpuscular Hemoglobin 28.9 PG (26-34); Mean Corpuscular Volume 85.4 fL (80-100); Monocytes Absolute Auto 500 /uL (0-900); Monocytes Percent Auto 6.5 % (3-14); Neutrophils Absolute Auto 4800 /uL (1500-7000); Neutrophils Percent Auto 62.7 % (50-75); Platelet Count 232 X10^3/uL (150-400); Red Blood Cell Count 5.12 X10^6/uL (4.0-5.2); Red Cell Distribution Width 13.2 % (11.6-14.8); White Blood Cell Count 7.7 X10^3/uL (4.5-11.0)
[2021-07-18 15:57] LABS: Alanine Aminotransferase 47 IU/L (<35); Albumin 4.6 g/dL (3.5-5.0); Albumin Globulin Ratio 1.4 (1.0-2.8); Alkaline Phosphatase 89 U/L (38-126); Aspartate Aminotransferase 39 IU/L (14-36); BUN Creatinine Ratio 16.5 (6-22); Bilirubin Total 0.8 mg/dL (0.2-1.3); Blood Urea Nitrogen 14 mg/dL (7-17); Calcium 9.6 mg/dL (8.4-10.2); Carbon Dioxide 26 mmol/L (22-32); Chloride 106 mmol/L (98-107); Estimated Glomerular Filt Rate > 60.0 mL/min (>60); Globulin 3.4 g/dL (1.7-4.1); Glucose 97 mg/dL (70-100); HEMOLYSIS < 15 (0-50); Potassium 4.1 mmol/L (3.4-5.1); Sodium 138 mmol/L (137-145)
[2021-07-18 15:58] LABS: Iron 114 ug/dL (37-170)
[2021-07-18 16:07] LABS: Percent Iron Saturation 37 % (15-50); Total Iron Binding Capacity 311 ug/dL (265-497)
[2021-07-18 16:32] LABS: Ferritin 126 ng/mL (11-264)
[2021-07-18 16:46] LABS: Vitamin B12 310 pg/mL (239-931)
== END ==
PROVIDERS: PCP Family Medicine; Referring Provider Family Medicine; Visit Provider Family Medicine
DX: D64.9 Anemia, unspecified (principal)
CPT/HCPCS: 36415; 80053; 82607; 82728; 83540; 83550; 85025

== ENCOUNTER → 2021-11-17 16:45 | Outpatient (CLI) | payer OTHER, SELFPAY ==
[2021-11-19 08:49] LABS: QuantiFERON Mitogen Value >10.00 IU/mL (.); QuantiFERON TB Gold Plus Negative (Negative)
== END ==
PROVIDERS: PCP Family Medicine; Referring Provider Family Medicine; Visit Provider Family Medicine
DX: Z00.00 Encounter for general adult medical examination without abnormal findings (principal)
CPT/HCPCS: 36415; 86480

== ENCOUNTER → 2022-07-02 09:45 | Outpatient (CLI) | payer OTHER, SELFPAY ==
[2022-07-02 11:21] LABS: Add Manual Diff / Slide Review NO; Basophils Absolute Auto 100 /uL (0-100); Eosinophils Absolute Auto 200 /uL (0-450); Eosinophils Percent Auto 2.4 % (2-4); Hematocrit 44.5 % (36-46); Hemoglobin 15.4 g/dL (12.0-16.0); Lymphocytes Absolute Auto 1700 /uL (1100-4500); Lymphocytes Percent Auto 21.5 % (25-40); Mean Corpuscular HGB Conc 34.7 % (30-36); Mean Corpuscular Volume 83.6 fL (80-100); Monocytes Absolute Auto 500 /uL (0-900); Monocytes Percent Auto 6.4 % (3-14); Neutrophils Absolute Auto 5400 /uL (1500-7000); Neutrophils Percent Auto 68.7 % (50-75); Platelet Count 222 X10^3/uL (150-400); Red Blood Cell Count 5.32 X10^6/uL (4.0-5.2); Red Cell Distribution Width 13.8 % (11.6-14.8); White Blood Cell Count 7.8 X10^3/uL (4.5-11.0)
[2022-07-02 11:44] LABS: HEMOLYSIS < 15 (0-50); Iron 76 ug/dL (37-170)
[2022-07-02 11:54] LABS: Alanine Aminotransferase 28 IU/L (<35); Albumin 4.3 g/dL (3.5-5.0); Albumin Globulin Ratio 1.4 (1.0-2.8); Alkaline Phosphatase 104 U/L (38-126); Aspartate Aminotransferase 21 IU/L (14-36); BUN Creatinine Ratio 13.4 (6-22); Bilirubin Total 0.5 mg/dL (0.2-1.3); Blood Urea Nitrogen 11 mg/dL (7-17); Calcium 9.3 mg/dL (8.4-10.2); Carbon Dioxide 22 mmol/L (22-32); Chloride 104 mmol/L (98-107); Cholesterol 292 mg/dL (140-199); Estimated Glomerular Filt Rate > 60 mL/min (>60); Glucose 110 mg/dL (70-100); HDL Cholesterol 37 mg/dL (40-60); HEMOLYSIS < 15 (0-50); LDL Cholesterol Calculated 206 mg/dL (<100); Potassium 4.4 mmol/L (3.4-5.1); Sodium 137 mmol/L (137-145); Total Protein 7.3 g/dL (6.3-8.2); Triglycerides 243 mg/dL (35-150)
[2022-07-02 11:55] LABS: Percent Iron Saturation 23 % (15-50); Total Iron Binding Capacity 329 ug/dL (265-497); Transferrin 260 mg/dL (206-381)
[2022-07-02 12:15] LABS: Appearance Urine UA CLEAR; Bilirubin Urine UA NEGATIVE (NEGATIVE); Color Urine UA YELLOW; Glucose Urine UA NEGATIVE (Negative); Ketones Urine UA NEGATIVE (NEGATIVE); Leukocyte Esterase Urine UA NEGATIVE (NEGATIVE); Nitrite Urine UA NEGATIVE (Negative); Occult Blood Urine UA NEGATIVE (Negative); Protein Urine UA NEGATIVE (Negative); Urobilinogen Urine UA 0.2 E.U./dL (0.2)
[2022-07-02 12:18] LABS: TSH w/ Reflex to FT4 1.47 uIU/mL (0.47-4.68)
[2022-07-02 12:44] LABS: Bacteria Urine Moderate (10-30); Culture Indicated Urine Cult Not Indicated; RBC Urine None Seen (0-5/HPF); Squamous Epithelial Cell Urine 5-10 /HPF (0-5/HPF); WBC Urine 1-5/HPF (0-5/HPF)
== END ==
PROVIDERS: PCP Pediatrics; Referring Provider Pediatrics; Visit Provider Pediatrics
DX: D50.9 Iron deficiency anemia, unspecified (principal); D68.0 Von Willebrand disease; E66.9 Obesity, unspecified; K21.9 Gastro-esophageal reflux disease without esophagitis
CPT/HCPCS: 36415; 80053; 80061; 81001; 83540; 83550; 84443; 85025

== ENCOUNTER → 2022-08-17 14:37 | Outpatient (CLI) | payer OTHER, SELFPAY ==
--- NOTE | 2022-08-17 14:41 | DI.RAD.S_ITS ---
PROCEDURE: XR ANKLE RT MIN 3V INDICATIONS: Right ankle injury TECHNIQUE: 3 views of the ankle were acquired. COMPARISON: None. FINDINGS: Bones: No fractures or dislocations. Ankle mortise is normally aligned. No suspicious bony lesions. Mild tibiotalar and talonavicular joint degeneration Calcaneal spurring. Soft tissues: Small tibiotalar joint effusion. Achilles tendon appears normal. Soft tissue swelling over ankle. IMPRESSION: 1. No acute osseous abnormalities. There is soft tissue swelling over the ankle and small tibiotalar joint effusion. If clinical symptoms persist or clinical suspicion for pathology is high, a repeat examination in 7-10 days, or advanced imaging such as CT or MRI is suggested for further evaluation. 2. Mild degenerative joint disease. 3. Calcaneal spurring. Dictated by: Leona Hayes M.D. on 08/17/2022 at 17:52 Approved by: Leona Hayes M.D. on 08/17/2022 at 17:54
== END ==
PROVIDERS: PCP Family Medicine; Referring Provider Student in an Organized Health Care Education/Training Program; Visit Provider Student in an Organized Health Care Education/Training Program
DX: S99.911A Unspecified injury of right ankle, initial encounter (principal); M19.071 Primary osteoarthritis, right ankle and foot; M35.7 Hypermobility syndrome; M77.31 Calcaneal spur, right foot; X58.XXXA Exposure to other specified factors, initial encounter
CPT/HCPCS: 73610

== ENCOUNTER → 2022-12-23 08:43 | Outpatient (CLI) | payer OTHER, SELFPAY ==
[2022-12-23 09:39] LABS: Hemoglobin A1C% w Est Avg Glu 5.8 % (4.0-6.0)
[2022-12-23 09:44] LABS: Alanine Aminotransferase 37 IU/L (<35); Albumin 4.2 g/dL (3.5-5.0); Albumin Globulin Ratio 1.4 (1.0-2.8); Alkaline Phosphatase 96 U/L (38-126); Aspartate Aminotransferase 28 IU/L (14-36); BUN Creatinine Ratio 15.2 (6-22); Bilirubin Total 0.6 mg/dL (0.2-1.3); Blood Urea Nitrogen 12 mg/dL (7-17); Calcium 9.3 mg/dL (8.4-10.2); Carbon Dioxide 23 mmol/L (22-32); Chloride 105 mmol/L (98-107); Estimated Glomerular Filt Rate > 60 mL/min (>60); Globulin 3.1 g/dL (1.7-4.1); Glucose 116 mg/dL (70-100); HEMOLYSIS < 15 (0-50); Potassium 4.1 mmol/L (3.4-5.1); Sodium 138 mmol/L (137-145); Total Protein 7.3 g/dL (6.3-8.2)
[2022-12-23 09:56] LABS: Creatinine Urine Random 120.1 mg/dL
[2022-12-23 10:00] LABS: Microalbumi Creatinin Ratio Ur 29.9 ug/mg CR (<30); Microalbumin Urine Random 3.6 mg/dL (0-1.6); Protein (Total) Urine Random < 5 mg/dL (0-12); Protein Creatinine Ratio Urine 0.04 GRAM/24H
== END ==
PROVIDERS: PCP Family Medicine; Referring Provider Family Medicine; Visit Provider Family Medicine
DX: E11.69 Type 2 diabetes mellitus with other specified complication (principal); E66.9 Obesity, unspecified; I10 Essential (primary) hypertension; R73.9 Hyperglycemia, unspecified
CPT/HCPCS: 36415; 80053; 82043; 82570; 83036; 84156

== ENCOUNTER → 2023-09-07 12:35 | Outpatient (CLI) | payer OTHER, SELFPAY ==
[2023-09-07 13:29] LABS: Add Manual Diff / Slide Review NO; Basophils Absolute Auto 100 /uL (0-100); Basophils Percent Auto 1.2 % (0-2); Eosinophils Absolute Auto 200 /uL (0-450); Eosinophils Percent Auto 2.9 % (2-4); Hematocrit 44.3 % (36-46); Lymphocytes Absolute Auto 2100 /uL (1100-4500); Lymphocytes Percent Auto 28.5 % (25-40); Mean Corpuscular HGB Conc 33.9 % (30-36); Mean Corpuscular Hemoglobin 28.5 PG (26-34); Mean Corpuscular Volume 84.2 fL (80-100); Monocytes Absolute Auto 500 /uL (0-900); Monocytes Percent Auto 6.1 % (3-14); Neutrophils Absolute Auto 4600 /uL (1500-7000); Neutrophils Percent Auto 61.3 % (50-75); Platelet Count 233 X10^3/uL (150-400); Red Blood Cell Count 5.26 X10^6/uL (4.0-5.2); Red Cell Distribution Width 13.5 % (11.6-14.8); White Blood Cell Count 7.5 X10^3/uL (4.5-11.0)
[2023-09-07 13:43] LABS: Alanine Aminotransferase 36 IU/L (<35); Albumin 4.4 g/dL (3.5-5.0); Albumin Globulin Ratio 1.3 (1.0-2.8); Alkaline Phosphatase 94 U/L (38-126); Aspartate Aminotransferase 30 IU/L (14-36); BUN Creatinine Ratio 20.5 (6-22); Bilirubin Total 0.5 mg/dL (0.2-1.3); Blood Urea Nitrogen 16 mg/dL (7-17); Calcium 9.7 mg/dL (8.4-10.2); Carbon Dioxide 24 mmol/L (22-32); Chloride 105 mmol/L (98-107); Cholesterol 314 mg/dL (140-199); Estimated Glomerular Filt Rate > 60 mL/min (>60); Globulin 3.5 g/dL (1.7-4.1); Glucose 111 mg/dL (70-100); HDL Cholesterol 30 mg/dL (40-60); HEMOLYSIS < 15 (0-50); LDL Cholesterol Calculated 228 mg/dL (<100); Potassium 4.1 mmol/L (3.4-5.1); Sodium 139 mmol/L (137-145); Total Protein 7.9 g/dL (6.3-8.2); Triglycerides 278 mg/dL (35-150)
[2023-09-07 13:47] LABS: High Sensitivity CRP - Cardiac 3.4 mg/L (1.0-3.0)
[2023-09-07 14:16] LABS: TSH w/ Reflex to FT4 1.08 uIU/mL (0.47-4.68)
== END ==
PROVIDERS: PCP Family Medicine; Referring Provider Family Medicine; Visit Provider Family Medicine
DX: E66.01 Morbid (severe) obesity due to excess calories (principal); E11.69 Type 2 diabetes mellitus with other specified complication; E66.9 Obesity, unspecified; R73.9 Hyperglycemia, unspecified; Z86.79 Personal history of other diseases of the circulatory system; I10 Essential (primary) hypertension; D50.9 Iron deficiency anemia, unspecified; D68.09 Other von Willebrand disease
CPT/HCPCS: 36415; 80053; 80061; 83036; 84443; 85025; 86140

== ENCOUNTER → 2024-10-25 09:47 | Outpatient (CLI) | payer OTHER, SELFPAY ==
[2024-10-25 11:03] LABS: Hematocrit 44.1 % (36-46); Mean Corpuscular Hemoglobin 28.8 PG (26-34); Mean Corpuscular Volume 84.7 fL (80-100); Platelet Count 281 X10^3/uL (150-400); Red Cell Distribution Width 13.1 % (11.6-14.8); White Blood Cell Count 7.5 X10^3/uL (4.5-11.0)
[2024-10-25 11:15] LABS: Hemoglobin A1C% w Est Avg Glu 5.2 % (4.0-6.0)
[2024-10-25 11:24] LABS: Alanine Aminotransferase 31 IU/L (<35); Albumin 4.1 g/dL (3.5-5.0); Albumin Globulin Ratio 1.2 (1.0-2.8); Alkaline Phosphatase 87 U/L (38-126); Aspartate Aminotransferase 29 IU/L (14-36); BUN Creatinine Ratio 14.7 (6-22); Bilirubin Total 0.5 mg/dL (0.2-1.3); Blood Urea Nitrogen 14 mg/dL (7-17); Calcium 9.5 mg/dL (8.4-10.2); Carbon Dioxide 26 mmol/L (22-32); Chloride 106 mmol/L (98-107); Estimated Glomerular Filt Rate > 60 mL/min (>60); Globulin 3.4 g/dL (1.7-4.1); Glucose 108 mg/dL (70-100); HDL Cholesterol 41 mg/dL (40-60); HEMOLYSIS < 15 (0-50); Potassium 4.1 mmol/L (3.4-5.1); Sodium 137 mmol/L (137-145); Total Protein 7.5 g/dL (6.3-8.2)
[2024-10-25 11:27] LABS: High Sensitivity CRP - Cardiac 2.6 mg/L (1.0-3.0)
[2024-10-25 11:30] LABS: Cholesterol 314 mg/dL (140-199)
[2024-10-25 12:00] LABS: TSH w/ Reflex to FT4 1.49 uIU/mL (0.47-4.68)
[2024-10-25 12:07] LABS: LDL Cholesterol Calculated 241 mg/dL (<100); Triglycerides 161 mg/dL (35-150)
[2024-10-25 18:09] LABS: Follicle Stimulating Hormone 50.3 mIU/mL
[2024-10-27 19:09] LABS: von Willebrand Factor Activity 138 % (50-200)
== END ==
PROVIDERS: PCP Family Medicine; Referring Provider Family Medicine; Visit Provider Family Medicine
DX: E66.01 Morbid (severe) obesity due to excess calories (principal); E78.5 Hyperlipidemia, unspecified; E11.69 Type 2 diabetes mellitus with other specified complication; E66.9 Obesity, unspecified; I10 Essential (primary) hypertension; N95.1 Menopausal and female climacteric states; D68.00 Von Willebrand disease, unspecified
CPT/HCPCS: 36415; 80053; 80061; 83001; 83036; 84443; 85027; 85245; 86140

== ENCOUNTER 2025-02-17 20:11 | Emergency (ER) | payer OTHER, SELFPAY ==
[2025-02-17 20:47] VITALS: BP 146/73; PULSE 91; RESP 18; TEMP 36.6; O2SAT 98; BMI 35.5
--- NOTE | 2025-02-17 20:51 | DI.RAD.S_ITS ---
PROCEDURE: XR ANKLE RT MIN 3V INDICATIONS: injury TECHNIQUE: 3 views of the ankle were acquired. COMPARISON: [facility], CR, XR KNEE LT 3V, 02/17/2025, 20:51. [facility], CR, XR ANKLE RT MIN 3V, 08/17/2022, 14:42. FINDINGS: Bones: No acute appearing fractures or dislocations. There is chronic appearing irregularity seen involving the distal fibula. Ankle mortise is normally aligned. No suspicious bony lesions. The talar dome demonstrates no cate abnormality. Plantar and Achilles calcaneal spurs are seen. Incidental note is made of an accessory ossicle, an os trigonum. Soft tissues: There is moderate soft tissue swelling seen laterally. IMPRESSION: Soft tissue swelling is seen, without an acute bony abnormality seen by plain film. If there is point tenderness (or other clinical suspicion for a fracture not seen on these images) then a dedicated CT or a short-term followup plain film series could be considered for further evaluation, as clinically appropriate. Dictated by: Erasmo Berkowitz M.D. on 02/17/2025 at 20:32 Approved by: Erasmo Berkowitz M.D. on 02/17/2025 at 20:33
--- NOTE | 2025-02-17 20:52 | DI.RAD.S_ITS ---
PROCEDURE: XR KNEE LT 3V INDICATIONS: pain TECHNIQUE: 3 views of the knee were acquired. COMPARISON: [facility], CR, XR ANKLE RT MIN 3V, 02/17/2025, 20:51. FINDINGS: Bones: No fractures or dislocations. No suspicious bony lesions. Soft tissues: Mild prepatellar soft tissue swelling can be seen. No joint effusion. No suspicious soft tissue calcifications. IMPRESSION: Mild prepatellar soft tissue swelling, without an acute bony abnormality seen by plain film. No cate joint effusion. If it would be helpful for clinical management decision making, please consider a dedicated, scheduled knee MRI for further evaluation (assuming that there is no contraindication). Dictated by: Erasmo Berkowitz M.D. on 02/17/2025 at 20:31 Approved by: Erasmo Berkowitz M.D. on 02/17/2025 at 20:32
== END 2025-02-18 | disposition left against medical advice (07) ==
PROVIDERS: Emergency Provider Emergency Medicine; PCP Family Medicine
DX: S99.911A Unspecified injury of right ankle, initial encounter (principal); M25.562 Pain in left knee; M25.462 Effusion, left knee; M25.471 Effusion, right ankle; W19.XXXA Unspecified fall, initial encounter
CPT/HCPCS: 73562; 73610; 99284

== ENCOUNTER → 2025-05-26 09:19 | Outpatient (CLI) | payer OTHER, SELFPAY ==
[2025-05-26 11:01] LABS: Hemoglobin A1C% w Est Avg Glu 5.2 % (4.0-6.0)
[2025-05-26 11:07] LABS: Alanine Aminotransferase 31 IU/L (<35); Albumin 4.3 g/dL (3.5-5.0); Albumin Globulin Ratio 1.5 (1.0-2.8); Alkaline Phosphatase 86 U/L (38-126); Blood Urea Nitrogen 15 mg/dL (7-17); Calcium 9.4 mg/dL (8.4-10.2); Carbon Dioxide 23 mmol/L (22-32); Chloride 105 mmol/L (98-107); Cholesterol 283 mg/dL (140-199); Estimated Glomerular Filt Rate > 60 mL/min (>60); Globulin 2.9 g/dL (1.7-4.1); Glucose 118 mg/dL (70-99); HDL Cholesterol 34 mg/dL (40-60); HEMOLYSIS < 15 (0-50); Potassium 4.4 mmol/L (3.4-5.1); Sodium 138 mmol/L (137-145); Total Protein 7.2 g/dL (6.3-8.2); Triglycerides 268 mg/dL (35-150)
[2025-05-27 08:13] LABS: CRP, High Sensitivity 2.50 mg/L (0.00-3.00)
== END ==
PROVIDERS: PCP Family Medicine; Referring Provider Family Medicine; Visit Provider Family Medicine
DX: E78.5 Hyperlipidemia, unspecified (principal); E11.69 Type 2 diabetes mellitus with other specified complication; E66.9 Obesity, unspecified
CPT/HCPCS: 36415; 80053; 80061; 83036; 86140

== ENCOUNTER → 2025-06-11 14:39 | Outpatient (CLI) | payer OTHER, SELFPAY | PROVIDERS: PCP Family Medicine; Referring Provider Family Medicine; Visit Provider Family Medicine | DX: Z00.00 Encounter for general adult medical examination without abnormal findings (principal); Z12.11 Encounter for screening for malignant neoplasm of colon | CPT/HCPCS: 82274 ==

== ENCOUNTER → 2025-09-04 17:50 | Outpatient (CLI) | payer OTHER, SELFPAY ==
[2025-09-04 18:32] LABS: Appearance Urine UA CLEAR; Bilirubin Urine UA NEGATIVE (NEGATIVE); Color Urine UA YELLOW; Glucose Urine UA NEGATIVE (Negative); Ketones Urine UA NEGATIVE (NEGATIVE); Leukocyte Esterase Urine UA NEGATIVE (NEGATIVE); Nitrite Urine UA POSITIVE (Negative); Occult Blood Urine UA NEGATIVE (Negative); Protein Urine UA NEGATIVE (Negative); Specific Gravity Urine UA >=1.030 (1.000-1.035); Urobilinogen Urine UA 0.2 E.U./dL (0.2); pH Urine UA 6.0 (4.5-8.0)
[2025-09-04 18:34] LABS: Culture Indicated Urine Specimen Cultured
== END ==
PROVIDERS: PCP Family Medicine; Visit Provider Obstetrics & Gynecology Gynecology
DX: N39.46 Mixed incontinence (principal); N81.9 Female genital prolapse, unspecified; N81.10 Cystocele, unspecified; N81.6 Rectocele
CPT/HCPCS: 81001; 87077; 87086

== ENCOUNTER → 2025-10-25 06:17 | Day surgery (SDC) | payer OTHER, SELFPAY ==
[2025-09-14 12:35] VITALS: BMI 37.3
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
[2025-10-25] VITALS (8 sets, daily range): BP systolic 113–151; BP diastolic 55–81; PULSE 78–90; RESP 13–20; TEMP 36.1–36.3; O2SAT 92–98
[2025-10-25] MEDS: LACTATED RINGERS 1,000 ML 42 ML IV (06:59)
[2025-10-25] MEDS: ACETAMINOPHEN 325 MG TABLET 975 MG PO (07:20)
[2025-10-25] MEDS: hydrOXYzine 50 MG/ML INJ 25 MG IM (07:37)
[2025-10-25] MEDS: PHENAZOPYRIDINE 100 MG TABLET 200 MG PO (07:37)
--- NOTE | 2025-10-25 07:42 | PM.PREOP ---
Pre-operative Note Interval Note History & Physical reviewed/Exam performed by Physician: Yes Changes to H&P: No
--- NOTE | 2025-10-25 07:43 | PM.GYNOP.1 ---
Operative Date/Time/Diagnoses Date of procedure: 10/25/25 Time of procedure: 08:00 Pre-op diagnosis: rectocele, cystocele, vaginal vault prolapse, stress incontience Post-op diagnosis: same Procedure & Clinicians Procedure: Procedures Operation Date: 10/25/25 07:45 <No data on this case meets the specified criteria> Operative Notes Findings: Operative Note Surgeon:? Emigdio Uriostegui MD Maturity Checker:?? Javan Teresa MD Pre-Op Diagnosis:?? Rectocele, Vaginal Vault prolapse, cystocele, Stress urinary incontinence Post-Op Diagnosis:?? Rectocele, Vaginal Vault prolapse, Stress urinary incontinence Procedure:?? TVT mid-urethral sling, cystoscopy posterior colpoperineorrhaphy, Sacrospinous ligament vaginal vault suspension Findings (brief): ? 1.? EUA with large balloning stage 3 rectocele as noted on preop exam. and stage 1-2 vaginal vault prolapse however, the cystocele was actually a cuff dependent prolapse, and was corrected with the SSL-VVS, so a cystocele repair was not needed prior hysterectomy. ? 2.? TVT sling placed at mid-urethra, tension-free.? Cystoscopy with normal bladder, urethra, ureters,? no trocar injury. ? 3.? Posterior colporrhaphy in usual fashion. Levator plication with 6 sutures of 0-vicryl. perineorrhaphy with 2 sutures of 2-0 vicryl to reconstruct the perineal body. ? 4.? SSL - VVS, with Capio with 2 sutures of 0-PDS, on the right side SSL. Attached to the upper midline vag cuff. ? Excellent apical support when done.? Date of Surgery:? October 25, 2025 Complications:? None Specimens:? None Anesthesia Technique: General endotracheal with IV propofol Estimated Blood Loss (mls):? 150 Blood Replacement (mls):? None Drains:? Lewis Condition:? Stable Procedure in detail: After consent was confirmed, the patient was taken to the operating room and placed under general anesthesia without incident.? Sequential compression devices were in place and active.? She received perioperative antibiotics.? She was then prepped and draped in the usual sterile fashion after placement in the dorsal lithotomy position using the Alfredo stirrups.? A Lewis catheter was placed.? With the Lewis catheter in place, the anterior vaginal mucosa beneath and lateral to the urethra was injected with 15 cc of? 0.5% lidocaine / epinephrine 1:200,000.? A 2-3 cm midline incision was made at the level of the midurethra with a scapel. Metzenbaum scissors were used to dissect the vagina from the urethra and then create tunnels beneath the vaginal mucosa up toward the pubic bone on each side.? A marking pen was used to lynn the skin just above the pubic bone and 2 cm from the midline bilaterally, and two small 8-10 mm incisions were made on the suprapubic skin.? The trocar was passed from the right vaginal tunnel, behind the pubic bone, to the right suprapubic incision, and this was repeated on the left side.? The Lewis catheter was removed, and cystoscopy was performed with a 70 degree lens. There was no trocar injury, and the bladder, ureters, and urethra were normal.? The Lewis catheter was reinserted.? The sling was pulled into position in a tension-free manner, and a Judy clamp was easily passed between the sling and the urethra.? The plastic sheaths were removed to anchor the sling, and tension was checked again. The ends of the sling were trimmed just below the skin, and the skin incisions were cleaned and closed with dermabond. The vaginal incision was closed with 2-0 vicryl in a running fashion. ? Attention was then turned to the posterior vaginal wall. The posterior vaginal mucosa was grasped with Allis clamps and was injected with 30 cc of 0.5% lidocaine / epinephrine 1:200,000.? A jessica-shaped incision was made at the posterior vaginal introitus over the distal vaginal mucosa and perineal skin, and this skin / mucosa was dissected off of the perineal body.? A midline incision was continued up the posterior vaginal mucosa with the Metzenbaum scissors. The vaginal mucosa was dissected off of the underlying rectovaginal fascia / rectum until the side lee were reached.? ?This completed the dissection for the rectocele. The Right para-rectal space was dissected using blunt and sharp dissection until the ischial spines and coccyx were palpated.? The sacrospinous ligament was cleared of the overlying adventitial tissue, bilaterally.? This completed the dissection for the sacrospinous ligament suspension.? The Iagnosisio needle tractor driver teamster was used to place two 0-PDS sutures through the right sacrospinous ligament, approx 2 cm medial to the ischial spine. These sutures were attached to the vaginal cuff later. The posterior vaginal levators were plicated with 6 horizontal mattress sutures of 2-0 vicryl.? A rectal exam was performed during the placement of the sutures to avoid rectal injury.? No sutures were noted in the rectum at the end of the procedure.? This corrected the rectocele. Next the SSLF sutures were placed through the vaginal cuff. For each of the two 0-PDS sutures, both suture ends were passed through the vaginal apex, about 1 cm apart 1 in the midline and 1 just to the right of midline.? Next, the?upper half of the posterior vaginal incision was closed with running 2-0 vicryl.? Then, each of the PDS sutures were tied down, with excellent support of the vaginal apex. Next, Excess posterior vaginal mucosa from the rectocele was trimmed and the incision was closed with 2-0 vicryl.?? A perineorrhaphy was performed with 2-0 vicryl suture.? Hemostasis was noted. Sponge, needle and instrument count was correct.? The patient tolerated the procedure well and was taken to the recovery room in stable condition. An additional set of hands was needed to perform the surgery, so a surgical oncologist was needed for the case. The janitorial assistant provided retraction and exposure throughout the case. Emigdio Uriostegui MD UroGynecology & Pelvic Reconstructive Surgery [place], [place] Applied: implant(s) (TVT sling)
--- NOTE | 2025-10-25 08:47 | SUR.OPER ---
Surgery delay-'s H&P not entered untill [id number]
--- NOTE | 2025-10-25 08:49 | SUR.OPER ---
Lithotomy on padded OR bed, head on pillow, arms secured on padded arm boards at <90 degrees abduction. Legs secured in padded yellow fins stirrups.
[2025-10-25] MEDS: LIDOCAINE 1% W/EPI 10ML 20 ML INJ (09:18)
== END | disposition home or self-care (01) ==
PROVIDERS: PCP Family Medicine; Referring Provider Obstetrics & Gynecology Gynecology; Visit Provider Obstetrics & Gynecology Gynecology
PROC: (CPT 57282; principal; 2025-10-25 07:45)
PROC: 0TSD0ZZ Reposition Urethra, Open Approach (ICD-10-PCS; CPT 57282; 2025-10-25 07:45)
DX: N99.3 Prolapse of vaginal vault after hysterectomy (principal); N39.46 Mixed incontinence; R35.1 Nocturia; N32.81 Overactive bladder; Z88.6 Allergy status to analgesic agent; Z88.4 Allergy status to anesthetic agent; Z88.1 Allergy status to other antibiotic agents; Z91.040 Latex allergy status; Z88.5 Allergy status to narcotic agent; Z88.2 Allergy status to sulfonamides; Z91.048 Other nonmedicinal substance allergy status
CPT/HCPCS: 57282; 57288; 57250; C1771; J0689; J1100; J2250; J2405; J2704; J3010; J3410; J3490; J7120

== ENCOUNTER → 2025-11-13 11:01 | Outpatient (CLI) | payer OTHER, SELFPAY ==
[2025-11-13 11:53] LABS: Appearance Urine UA SL CLOUDY; Bilirubin Urine UA NEGATIVE (NEGATIVE); Color Urine UA YELLOW; Glucose Urine UA NEGATIVE (Negative); Ketones Urine UA NEGATIVE (NEGATIVE); Leukocyte Esterase Urine UA TRACE (NEGATIVE); Nitrite Urine UA NEGATIVE (Negative); Occult Blood Urine UA NEGATIVE (Negative); Protein Urine UA 1+ (Negative); Specific Gravity Urine UA >=1.030 (1.000-1.035); Urobilinogen Urine UA 0.2 E.U./dL (0.2)
[2025-11-13 11:54] LABS: pH Urine UA 5.5 (4.5-8.0)
[2025-11-13 12:02] LABS: Culture Indicated Urine Specimen Cultured
== END ==
PROVIDERS: PCP Family Medicine; Referring Provider Obstetrics & Gynecology; Visit Provider Obstetrics & Gynecology
DX: N39.41 Urge incontinence (principal); R30.9 Painful micturition, unspecified
CPT/HCPCS: 81001; 87086